=== PATIENT | female | born 1995 | race Caucasian/White ===

== ENCOUNTER → 2021-01-10 15:19 | Outpatient (BNVA) | payer OTHER, SELFPAY | PROVIDERS: Visit Provider Advanced Practice Midwife ==

== ENCOUNTER 2021-02-28 11:48 | Outpatient (REF) | payer OTHER, SELFPAY ==
[2021-02-28 17:11] LABS: CT PCR NOT DETECTED (Not Detect.); NG PCR NOT DETECTED (Not Detect.)
[2021-03-01 09:48] LABS: BV Int Neg Control Negative (Negative); BV Int Pos Control Positive (Positive)
== END 2021-02-28 11:49 | disposition home or self-care (01) ==
LOC: HO.LAB 11:48
PROVIDERS: Visit Provider Advanced Practice Midwife
DX: Z11.3 Encounter for screening for infections with a predominantly sexual mode of transmission (principal); R10.2 Pelvic and perineal pain; T83.32XD Displacement of intrauterine contraceptive device, subsequent encounter
CPT/HCPCS: 87480; 87491; 87510; 87591; 87660

== ENCOUNTER 2021-03-20 12:55 | Outpatient (REF) | payer OTHER, SELFPAY ==
--- NOTE | ~2021-03-20 | US_ITS ---
EXAMINATION: US PELVIS CLINICAL INFORMATION: Pelvic pain COMPARISON: Pelvic ultrasound 04/06/2018 TECHNIQUE: Ultrasound of the pelvis is performed using both transabdominal and transvaginal transducers along with Doppler. Transvaginal imaging is performed due to inadequate visualization transabdominally. FINDINGS: Uterus: The uterus is anteverted and measures 7.2 x 3.5 x 5.5 cm. An IUD is in place in good position and endometrial thickness. The double wall endometrial thickness is 6 mm. The uterus is smooth in contour and has normal myometrial echogenicity. No visible fibroid. Adnexa: Both ovaries are visualized and normal in appearance. There is normal color flow to the adnexa. There is no ovarian torsion. There is no pelvic ascites or fluid collection. Right ovary measures 2.9 x 2.0 x 3.2 cm for a volume of 10.1 mL. Left ovary measures 3.2 x 2.1 x 2.0 cm for a volume of 7.1 mL. US/US pelvic and transvaginal IMPRESSION: Negative exam.
== END 2021-03-20 12:56 | disposition home or self-care (01) ==
LOC: HO.US 12:55
PROVIDERS: Visit Provider Advanced Practice Midwife
DX: R10.2 Pelvic and perineal pain (principal); T83.32XA Displacement of intrauterine contraceptive device, initial encounter
CPT/HCPCS: 76830; 76856

== ENCOUNTER → 2021-03-27 11:14 | Outpatient (BNVA) | payer OTHER, SELFPAY | PROVIDERS: Visit Provider Advanced Practice Midwife ==